=== PATIENT | male | born 1960 | race Caucasian/White ===

== ENCOUNTER 2023-01-29 14:51 | Outpatient (OUT) | payer BC, SELFPAY ==
--- NOTE | 2023-01-29 15:04 | MR_ITS ---
[address] [address] Patient Name: BRIANNA VARGAS MRN: [id number] date: 1960 Sex: M Assigned Patient Location: MRI Current Patient Location: Accession/Order Number: [id number] Exam Date: 01/29/2023 15:44 Report Date: 01/30/2023 07:03 At the request of: LAURI AHUMADA Procedure: MR lumbar spine wo con EXAMINATION: MR lumbar spine wo con HISTORY: Left leg weakness R29.898,Lumbar spinal stenosis M48.062 , chronic lumbar pain, bilateral leg weakness COMPARISON: No relevant comparison available. TECHNIQUE: A variety of imaging planes and parameters were utilized for visualization of suspected pathology. FINDINGS: For the purposes of numbering, sagittal T2 image # 10 extends from the T11 vertebral body superiorly to the S3 level inferiorly. PARASPINAL AREA: Normal with no visible mass. BONES: Incidental large hemangioma within L3; small one within L1. No fracture or spondylolisthesis. CORD/CAUDA EQUINA: Normal caliber, contour, and signal intensity. DISC LEVELS: 12-L1: No significant disc/facet abnormality, spinal stenosis, or foraminal stenosis. L1-L2: Mild central canal and bilateral foramen narrowing. Mild diffuse disc bulging and mild disc height reduction. No significant facet arthropathy. L2-L3: Marked central canal and moderate bilateral foramen narrowing. Moderate diffuse disc bulging without disc at reduction. Increased fat within posterior aspect of central canal. Moderate degenerative facet arthropathy and ligamentum flavum thickening. L3-L4: Moderate-marked central canal narrowing with trace amount of CSF surrounding the nerve roots. Moderate foramen narrowing bilaterally. Mild diffuse disc bulging without disc height reduction. Increased fat within the central canal. Mild degenerative facet arthropathy. L4-L5: Moderate marked central canal narrowing with trace amount CSF surrounding the nerve roots. Mild diffuse disc bulging without disc height reduction. Marked degenerative facet arthropathy and ligamentum flavum thickening. Fat within central canal. L5-S1: Mild central canal and bilateral foramen narrowing. Moderate diffuse disc bulging without disc at reduction. Marked right, moderate left degenerative facet arthropathy. Increased fat within central canal. MR/MR lumbar spine wo con IMPRESSION: 1. Multilevel moderate to marked central canal and moderate bilateral foramen narrowing, greatest at L2-3. 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 Electronically authenticated by: LAYA RASHID Date: 01/30/2023 07:03
== END 2023-01-29 14:52 | disposition home or self-care (01) ==
LOC: MRI 14:55
PROVIDERS: PCP Internal Medicine; Visit Provider Internal Medicine
DX: R53.1 Weakness (principal); M48.062 Spinal stenosis, lumbar region with neurogenic claudication; M51.36 Other intervertebral disc degeneration, lumbar region; M47.816 Spondylosis without myelopathy or radiculopathy, lumbar region; M99.73 Connective tissue and disc stenosis of intervertebral foramina of lumbar region
CPT/HCPCS: 72148

== ENCOUNTER 2023-05-28 09:40 | Outpatient (OUT) | payer BC, SELFPAY ==
--- NOTE | 2023-05-28 09:45 | MR_ITS ---
[facility] [place] [id number] Patient Name: BRIANNA VARGAS MRN: [id number] date: 1960 Sex: M Assigned Patient Location: MRI Current Patient Location: MRI Accession/Order Number: [id number] Exam Date: 05/28/2023 10:05 Report Date: 05/28/2023 11:20 At the request of: AL GREEN Procedure: MR shoulder RT wo con MR shoulder RT wo con, 05/28/2023 10:05 AM EST INDICATION: Internal Derangement Of Right Shoulder M24.811 COMPARISON: There is no appropriate prior study for comparison. TECHNIQUE: Multiplanar and multisequential MR images of the right shoulder were obtained without contrast. FINDINGS: This study is limited due to degree dictation of images likely due to patient's body habitus. There are moderate hypertrophic degenerative changes of AC joint. There is no os acromiale. No Hill-Sachs is noted. No acute fracture or dislocation is noted. The quadrilateral space and supraspinous notch are unremarkable. The T2 prolongation within the insertional portions of supraspinatus and infraspinatus may suggest tendinosis. There is a partial-thickness partial width articular surface tear supraspinatus measuring 7 mm. The long head of biceps and teres minor and subscapularis are unremarkable. No fatty muscle atrophy is noted. The labrum shows mild to moderate degenerative changes anteriorly. There is trace intra articular joint effusion. MR/MR shoulder RT wo con IMPRESSION: Insertional tendinosis of infraspinatus. Low-grade articular surface tear of supraspinatus. Mild to moderate degenerative changes of the right glenohumeral joint and labrum. Electronically authenticated by: POLI BREWSTER Date: 05/28/2023 11:20
== END 2023-05-28 09:41 | disposition home or self-care (01) ==
LOC: MRI 09:40
PROVIDERS: PCP Internal Medicine; Visit Provider Personal Emergency Response Attendant
DX: M24.811 Other specific joint derangements of right shoulder, not elsewhere classified (principal); S46.011A Strain of muscle(s) and tendon(s) of the rotator cuff of right shoulder, initial encounter
CPT/HCPCS: 73221